=== PATIENT | female | born 2005 | race Caucasian/White ===

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

== ENCOUNTER 2024-05-28 09:55 | Emergency (ER) | payer BC, MEDICAID, SELFPAY ==
[2024-05-28 10:04] VITALS: BP 124/85; PULSE 67; RESP 16; TEMP 36.4; O2SAT 100; BMI 20.5
--- NOTE | 2024-05-28 10:08 | W.ED.UPPEXIN ---
HPI - Extremity Injury (Upper) General: Chief Complaint: Extremity Injury, Upper Stated Complaint: tree fell on arm Time Seen by Provider: 05/28/24 09:56 Source: patient Mode of arrival: ambulatory Limitations: no limitations History of Present Illness: Patient is a 18-year-old female presents to ED today for evaluation of a left wrist injury that she sustained yesterday. Patient states she was carrying a heavy log along with her sister who dropped her end causing patient's left wrist to get stuck between the log and a truck. Patient has noticed some mild swelling to the ulnar aspect of her left wrist. She maintains fairly normal range of motion of the wrist joint. She no other injuries or complaints at this time. complaint: injury to: left and wrist Onset (ago): day(s) (yesterday) Other Extremity Injury: Left: wrist Other injuries: none Place: home Severity: mild Relieving factors: immobilization Exacerbating factors: movement of extremity Context: direct blow and crush Associated symptoms: Reports no associated symptoms Related Data Home Medications ?Medication ?Instructions ?Recorded ?Confirmed No Known Home Medications 10/26/19 10/26/19 Allergies Allergy/AdvReac Type Severity Reaction Status Date / Time azithromycin (From Zithromax) Allergy Unknown Verified 05/28/24 10:07 Review of Systems Musc: Reports: joint pain (L wrist) and joint swelling (L wrist) Neuro: Denies: numbness in extremities or sensory changes Physical Exam Const: COMMON NORMALS: no acute distress, average body habitus, no limitations, healthy appearing and well nourished Extremity: COMMON NORMALS: full ROM and capillary refill normal GENERAL: Yes normal exam except as noted LEFT UPPER EXTREMITY: Yes wrist Left wrist: Yes inspection (mild edema to ulnar wrist; no bony deformity), Yes ROM (normal; pain with ulnar deviation) and Yes neurovascular exam (normal) OTHER: radial pulse normal, normal cap refill and sensation Neuro: COMMON NORMALS: moves all extremities, no focal motor deficits and no sensory deficits noted Course Vital Signs: Vital signs: Vital Signs Temperature 97.5 F L 05/28/24 10:04 Pulse Rate 67 05/28/24 10:04 Respiratory Rate 16 05/28/24 10:04 Blood Pressure 124/85 05/28/24 10:04 Pulse Oximetry 100 05/28/24 10:04 Oxygen Delivery Me thod Room Air 05/28/24 10:04 MDM - Extremity Injury (Upper) Medical Decision Making XR negative. Will BLAKE wrap. She will be allowed discharge. Follow up with PCP in 2 weeks or so if symptoms are not improving. Medical Records I reviewed the patient's medical records. Lab Data Radiology Impressions Wrist X-Ray 05/28/24 10:11 IMPRESSION: No acute bone or joint abnormality. All radiology interpretation(s) finalized by discharge Discharge Plan Discharge Patient Disposition: Home Clinical Impression: Contusion of left wrist Qualifiers: Encounter type: initial encounter Qualified Code(s): S60.212A - Contusion of left wrist, initial encounter Condition: Stable Prescriptions: No Action No Known Home Medications Discharge Orders: Discharge ED (Routine); Ordered 05/28/24 Ordered By: Jessica Mcgee Referrals: Hailey Dickinson FNP [Primary Care Provider] - Patient Instructions: Contusion, RICE Therapy Print Language: Frisian Coding Level of Care Code ED Inspector Quality Assurance for Codie Kuhn
--- NOTE | 2024-05-28 10:11 | XR_ITS ---
WS: [id number] XR wrist LT min 3V* [id number] REASON FOR EXAM: injury/pain FINDINGS: No acute fracture. Radial metaphysis and scaphoid intact. Radiocarpal and intercarpal joint spaces are intact and well preserved. XR/XR wrist LT min 3V* [id number] IMPRESSION: No acute bone or joint abnormality.
[2024-05-28 10:46] VITALS: BP 112/79; PULSE 77; O2SAT 98
== END 2024-05-28 10:47 | disposition home or self-care (01) ==
PROVIDERS: Emergency Provider Physician Assistant; PCP Nurse Practitioner
DX: S60.212A Contusion of left wrist, initial encounter (principal); X58.XXXA Exposure to other specified factors, initial encounter
CPT/HCPCS: 73110; 99283